=== PATIENT | male | born 1930 | race Caucasian/White ===

== ENCOUNTER 2020-11-14 12:43 | Inpatient (IN) | payer MEDICARE, BC ==
[~2020-11-14] VITALS: Ht 177.8 cm; Wt 81.5 kg
[2020-11-14] VITALS (10 sets, daily range): BP systolic 114–132; BP diastolic 57–67
[~2020-11-14 12:43] MED LIST: FURO1TAB33 PO; LOVA40TA72 PO; POT20T PO; WARF10TA PO; WARF1TAB PO
[2020-11-14] MEDS ORDERED: PANTOPRAZOLE 40 MG/10 ML VIAL INJ IV ONE (13:30)
[2020-11-14 14:26] LABS: Basophils # (auto) 0 10 ^3/uL (0-0.2); Basophils % (auto) 0.2 % (0.0-2.0); Eosinophils # (auto) 0.1 10 ^3/uL (0-0.8); Eosinophils % (auto) 1.1 % (0.0-7.0); Hematocrit 39.1 % (41.0-53.0); Lymphocytes # (auto) 0.4 10 ^3/uL (0.4-5.4); Lymphocytes % (auto) 3.1 % (10.0-50.0); Mean Corpuscular Hgb Conc. 33.3 g/dL (32.0-36.0); Mean Corpuscular Volume 86.9 fL (80.0-100.0); Monocytes # (auto) 0.6 10 ^3/uL (0-1.3); Monocytes % (auto) 4.5 % (0.0-12.0); Neutrophils # (auto) 11.8 10 ^3/uL (1.6-8.6); Neutrophils % (auto) 91.1 % (37.0-80.0); Red Cell Distribution Width 17.4 % (11.8-14.3); White Blood Cell 12.9 10^3/uL (4.4-10.8)
[2020-11-14 14:38] LABS: INR 3.02 (0.9-1.15)
[2020-11-14 14:44] LABS: Albumin 3.2 g/dL (3.4-5.0); Anion Gap 7 (5-15); Blood Urea Nitrogen 23 mg/dL (7-18); Carbon Dioxide 25 mmol/L (21-32); Chloride 106 mmol/L (98-107); Glucose 93 mg/dL (74-106); Potassium 3.6 mmol/L (3.5-5.1); Sodium 138 mmol/L (136-145)
[2020-11-14 14:50] LABS: Alanine Aminotransferase 26 U/L (16-61); Alkaline Phosphatase 64 U/L (45-117); Aspartate Aminotransferase 22 U/L (15-37); BUN/Creatinine Ratio 15.2; Bilirubin, Total 2.1 mg/dL (0.2-1.0); GFR African American 56 mL/min; GFR Non-African American 47 mL/min; Total Protein 7.6 g/dL (6.4-8.2)
[2020-11-14] MEDS ORDERED: IOHEXOL 300 MG/ML 100ML BOTTLE IJ ONE (15:59)
[2020-11-14] MEDS ORDERED: metroNIDAZOLE 500MG/100ML 100 ML IV ONE (17:15)
[2020-11-14] MEDS ORDERED: MORPHINE SULFATE 10 MG/ML INJ 1ML SDV IV ONE (17:15)
[2020-11-14] MEDS ORDERED: CIPROFLOXACIN 400MG/200ML 200 ML IV ONE (17:15)
[2020-11-14] MEDS ORDERED: SODIUM CHLORIDE 0.9% 1,000 ML IV ONE ×2 (17:15→17:45)
[2020-11-14] MEDS ORDERED: MORPHINE SULFATE INJECTION 2 MG/ML SYRG IV ONE (17:30)
[2020-11-14] MEDS ORDERED: PHYTONADIONE (VIT K)10 MG/ML 1ML VIAL SUBCUT ONE (17:45)
[2020-11-14] MEDS ORDERED: NITROGLYCERIN 0.4 MG SL TAB SL PRN (17:45)
[2020-11-14] MEDS ORDERED: ONDANSETRON HCL 4 MG/2 ML VIAL IV PRN (17:45)
[2020-11-14] MEDS ORDERED: MORPHINE SULFATE INJECTION 2 MG/ML SYRG IV PRN ×2 (17:45)
[2020-11-14] MEDS ORDERED: SODIUM CHLORIDE 0.9% 1,000 ML IV SCH (17:45)
[2020-11-14] MEDS ORDERED: SOD CHL 0.45% WITH 20MEQ KCL 1,000 ML IV ONE (20:15)
[2020-11-15] VITALS: BP 120/68
[2020-11-15 00:15] VITALS: BP 127/60
[2020-11-15 00:28] VITALS: BP 137/68
[2020-11-15] MEDS: metroNIDAZOLE 500MG/100ML 100 ML IV SCH ×4 (00:40→22:18)
[2020-11-15] MEDS: PANTOPRAZOLE 40 MG/10 ML VIAL INJ IV SCH ×2 (00:41→10:29)
[2020-11-15 02:11] LABS: Urine Bacteria FEW /hpf (None Seen); Urine Blood 1+ /uL (Negative); Urine Mucus FEW (None Seen); Urine WBC 1 /hpf (0 - 3)
[2020-11-15 07:30] LABS: Basophils # (auto) 0 10 ^3/uL (0-0.2); Basophils % (auto) 0.2 % (0.0-2.0); Eosinophils # (auto) 0.1 10 ^3/uL (0-0.8); Eosinophils % (auto) 1.7 % (0.0-7.0); Hematocrit 33.5 % (41.0-53.0); Hemoglobin 11.4 g/dL (13.5-17.5); Lymphocytes # (auto) 0.3 10 ^3/uL (0.4-5.4); Lymphocytes % (auto) 3.1 % (10.0-50.0); Mean Corpuscular Hemoglobin 29.4 pg (28.0-32.0); Mean Corpuscular Hgb Conc. 33.9 g/dL (32.0-36.0); Mean Corpuscular Volume 86.6 fL (80.0-100.0); Monocytes # (auto) 0.6 10 ^3/uL (0-1.3); Monocytes % (auto) 7.1 % (0.0-12.0); Neutrophils # (auto) 7.4 10 ^3/uL (1.6-8.6); Neutrophils % (auto) 87.9 % (37.0-80.0); Nucleated Red Blood Cells % 0.1 %; Red Blood Cells 3.87 10^6/uL (4.5-5.90); Red Cell Distribution Width 17.1 % (11.8-14.3); White Blood Cell 8.4 10^3/uL (4.4-10.8)
[2020-11-15 07:41] LABS: INR 1.22 (0.9-1.15); Partial Thromboplastin Time 34.1 sec (23.6-33.0)
[2020-11-15] MEDS ORDERED: levoFLOXacin 500MG 100 ML IV SCH (10:00)
[2020-11-15] MEDS ORDERED: MIDAZOLAM HCL 2MG/2ML 2ml VIAL (1mg/ml) ONE (11:02)
[2020-11-15] MEDS ORDERED: HYDROmorphone HCL 2 MG/ML VL ONE (11:02)
[2020-11-15] MEDS ORDERED: fentaNYL CITRATE 100 MCG/2 ML VL ONE ×2 (11:02→12:01)
[2020-11-15] MEDS ORDERED: SUCCINYLCHOLINE CHLORIDE 20 MG/ML 10ML VIAL IV ONE (11:06)
[2020-11-15] MEDS ORDERED: LIDOCAINE 2% (LOCAL ANESTH.) PF 5ml SDV ONE (11:35)
[2020-11-15] MEDS ORDERED: PROPOFOL 10 MG/ML 20 ML IV ONE (11:35)
[2020-11-15] MEDS ORDERED: ONDANSETRON HCL 4 MG/2 ML VIAL ONE (11:35)
[2020-11-15] MEDS ORDERED: ROCURONIUM 10MG/ML 10ML VIAL IV ONE (11:36)
[2020-11-15] MEDS ORDERED: POVIDONE IODINE 10 % TOPICAL OINT 30GM TOP ONE (12:52)
[2020-11-15] MEDS ORDERED: BUPIVACAINE 0.25% INJ 50ML VIAL ONE (13:59)
[2020-11-15] MEDS ORDERED: ONDANSETRON HCL 4 MG/2 ML VIAL IV PRN ×2 (14:15→14:45)
[2020-11-15] MEDS: D5W/SOD CHL 0.45%/KCL 40MEQ 1,000 ML IV SCH ×2 (14:15→19:47)
[2020-11-15] MEDS ORDERED: NALOXONE HCL 0.4 MG/ML VIAL ONE (14:18)
[2020-11-15] MEDS ORDERED: PHENYLEPHRINE HCL 10 MG/ML VL ONE (14:33)
[2020-11-15] MEDS ORDERED: HYDROmorphone HCL 2 MG/ML VL IV PRN ×2 (14:45)
[2020-11-15 18:42] VITALS: BP 137/67
[2020-11-15 19:00] VITALS: BP 137/67
[2020-11-15] MEDS ORDERED: WARF1TAB36 PO (20:22)
[2020-11-15 22:00] VITALS: BP 124/59
[2020-11-15] MEDS ORDERED: metroNIDAZOLE 500MG/100ML 100 ML IV SCH (22:00)
[2020-11-15] MEDS: MORPHINE SULFATE INJECTION 2 MG/ML SYRG IV PRN (22:19)
[2020-11-16] MEDS: MORPHINE SULFATE INJECTION 2 MG/ML SYRG IV PRN (02:22)
[2020-11-16] MEDS ORDERED: FERR-20 PO (02:57)
[2020-11-16] MEDS ORDERED: WARF3TAB22 PO (02:57)
[2020-11-16] MEDS ORDERED: METO25TA5 PO (02:57)
[2020-11-16 04:00] VITALS: BP 139/66
[2020-11-16] MEDS: metroNIDAZOLE 500MG/100ML 100 ML IV SCH ×3 (05:13→21:39)
[2020-11-16 05:58] LABS: Basophils # (auto) 0 10 ^3/uL (0-0.2); Basophils % (auto) 0.3 % (0.0-2.0); Eosinophils # (auto) 0 10 ^3/uL (0-0.8); Eosinophils % (auto) 0.2 % (0.0-7.0); Hematocrit 35.4 % (41.0-53.0); Hemoglobin 11.9 g/dL (13.5-17.5); Lymphocytes # (auto) 0.3 10 ^3/uL (0.4-5.4); Lymphocytes % (auto) 2.8 % (10.0-50.0); Mean Corpuscular Hemoglobin 29.3 pg (28.0-32.0); Mean Corpuscular Hgb Conc. 33.6 g/dL (32.0-36.0); Mean Corpuscular Volume 87.1 fL (80.0-100.0); Monocytes # (auto) 0.9 10 ^3/uL (0-1.3); Monocytes % (auto) 9.2 % (0.0-12.0); Neutrophils # (auto) 8.4 10 ^3/uL (1.6-8.6); Neutrophils % (auto) 87.5 % (37.0-80.0); Red Blood Cells 4.06 10^6/uL (4.5-5.90); Red Cell Distribution Width 17.1 % (11.8-14.3); White Blood Cell 9.6 10^3/uL (4.4-10.8)
[2020-11-16 06:17] LABS: INR 1.23 (0.9-1.15); Partial Thromboplastin Time 30.4 sec (23.6-33.0)
[2020-11-16 06:26] LABS: Albumin 2.2 g/dL (3.4-5.0); BUN/Creatinine Ratio 13.9; Bilirubin, Total 1.8 mg/dL (0.2-1.0); Calcium 7.6 mg/dL (8.5-10.1)
[2020-11-16] MEDS: PANTOPRAZOLE 40 MG/10 ML VIAL INJ IV SCH (09:51)
[2020-11-16] MEDS: D5W/SOD CHL 0.45%/KCL 40MEQ 1,000 ML IV SCH ×2 (09:52→20:58)
[2020-11-16] MEDS ORDERED: ENOXAPARIN SOD 40 MG/0.4 ML SYRINGE SC SCH (10:00)
[2020-11-16] MEDS: KETOROLAC TROMETH 30 MG/ML 1ML VIAL IV PRN (15:51)
[2020-11-16 17:00] VITALS: BP 118/63
[2020-11-16 22:00] VITALS: BP 122/64
[2020-11-17 04:00] VITALS: BP 128/69
[2020-11-17] MEDS: metroNIDAZOLE 500MG/100ML 100 ML IV SCH ×3 (05:54→22:44)
[2020-11-17 06:05] LABS: Basophils # (auto) 0 10 ^3/uL (0-0.2); Basophils % (auto) 0.3 % (0.0-2.0); Eosinophils # (auto) 0.3 10 ^3/uL (0-0.8); Eosinophils % (auto) 3.1 % (0.0-7.0); Hematocrit 29.8 % (41.0-53.0); Hemoglobin 10.3 g/dL (13.5-17.5); Lymphocytes # (auto) 0.2 10 ^3/uL (0.4-5.4); Lymphocytes % (auto) 2.5 % (10.0-50.0); Mean Corpuscular Hemoglobin 29.7 pg (28.0-32.0); Mean Corpuscular Hgb Conc. 34.5 g/dL (32.0-36.0); Mean Corpuscular Volume 86.1 fL (80.0-100.0); Monocytes # (auto) 0.8 10 ^3/uL (0-1.3); Monocytes % (auto) 8.7 % (0.0-12.0); Neutrophils # (auto) 8.2 10 ^3/uL (1.6-8.6); Neutrophils % (auto) 85.4 % (37.0-80.0); Red Blood Cells 3.46 10^6/uL (4.5-5.90); Red Cell Distribution Width 17.1 % (11.8-14.3); White Blood Cell 9.6 10^3/uL (4.4-10.8)
[2020-11-17 06:13] LABS: INR 1.27 (0.9-1.15)
[2020-11-17] MEDS: D5W/SOD CHL 0.45%/KCL 40MEQ 1,000 ML IV SCH ×2 (06:15→15:11)
[2020-11-17 06:18] LABS: Potassium 4.2 mmol/L (3.5-5.1)
[2020-11-17 06:40] LABS: Albumin 1.8 g/dL (3.4-5.0); BUN/Creatinine Ratio 13.3; Bilirubin, Total 0.9 mg/dL (0.2-1.0); Calcium 7.8 mg/dL (8.5-10.1); Total Protein 5.5 g/dL (6.4-8.2)
[2020-11-17 09:00] VITALS: BP 146/65
[2020-11-17] MEDS ORDERED: levoFLOXacin 500MG 100 ML IV SCH (09:00)
[2020-11-17] MEDS: PANTOPRAZOLE 40 MG/10 ML VIAL INJ IV SCH (10:05)
[2020-11-17 13:00] VITALS: BP 124/61
[2020-11-17 16:56] VITALS: BP 130/60
[2020-11-17] MEDS ORDERED: WARFARIN SODIUM 5 MG TAB PO ONE (17:00)
[2020-11-17] MEDS: KETOROLAC TROMETH 30 MG/ML 1ML VIAL IV PRN (19:52)
[2020-11-17 23:05] VITALS: BP 124/65
[2020-11-18] MEDS: D5W/SOD CHL 0.45%/KCL 40MEQ 1,000 ML IV SCH ×2 (05:25→09:56)
[2020-11-18] MEDS: metroNIDAZOLE 500MG/100ML 100 ML IV SCH ×3 (05:31→22:51)
[2020-11-18 05:45] VITALS: BP 136/68
[2020-11-18 07:20] LABS: INR 1.25 (0.9-1.15); Partial Thromboplastin Time 31.4 sec (23.6-33.0)
[2020-11-18 07:41] LABS: Potassium 4.1 mmol/L (3.5-5.1)
[2020-11-18 07:46] LABS: Bilirubin, Total 0.9 mg/dL (0.2-1.0)
[2020-11-18 08:08] LABS: Basophils # (auto) 0.1 10 ^3/uL (0-0.2); Basophils % (auto) 0.6 % (0.0-2.0); Eosinophils # (auto) 0.4 10 ^3/uL (0-0.8); Eosinophils % (auto) 4.5 % (0.0-7.0); Hematocrit 29.8 % (41.0-53.0); Hemoglobin 10.2 g/dL (13.5-17.5); Lymphocytes # (auto) 0.3 10 ^3/uL (0.4-5.4); Mean Corpuscular Hemoglobin 29.4 pg (28.0-32.0); Mean Corpuscular Hgb Conc. 34.3 g/dL (32.0-36.0); Mean Corpuscular Volume 85.7 fL (80.0-100.0); Monocytes # (auto) 0.7 10 ^3/uL (0-1.3); Monocytes % (auto) 7.5 % (0.0-12.0); Neutrophils # (auto) 7.3 10 ^3/uL (1.6-8.6); Neutrophils % (auto) 84.4 % (37.0-80.0); Red Blood Cells 3.48 10^6/uL (4.5-5.90); Red Cell Distribution Width 17.4 % (11.8-14.3); White Blood Cell 8.6 10^3/uL (4.4-10.8)
[2020-11-18 08:30] VITALS: BP 140/63
[2020-11-18] MEDS: PANTOPRAZOLE 40 MG/10 ML VIAL INJ IV SCH (09:56)
[2020-11-18 12:30] VITALS: BP 152/77
[2020-11-18 13:05] VITALS: BP 145/68
[2020-11-18 16:46] VITALS: BP 132/69
[2020-11-18] MEDS ORDERED: WARFARIN SODIUM 2.5 MG TAB PO ONE (17:00)
[2020-11-18 22:00] VITALS: BP 150/82
[2020-11-19] MEDS: D5W/SOD CHL 0.45%/KCL 40MEQ 1,000 ML IV SCH ×3 (00:36→17:08)
[2020-11-19 05:00] VITALS: BP 138/72
[2020-11-19] MEDS: metroNIDAZOLE 500MG/100ML 100 ML IV SCH ×3 (06:08→21:37)
[2020-11-19 06:27] LABS: INR 1.37 (0.9-1.15)
[2020-11-19 06:29] LABS: Hematocrit 29.6 % (41.0-53.0); Hemoglobin 10.3 g/dL (13.5-17.5); Mean Corpuscular Hemoglobin 29.8 pg (28.0-32.0); Mean Corpuscular Hgb Conc. 34.8 g/dL (32.0-36.0); Mean Corpuscular Volume 85.7 fL (80.0-100.0); Red Blood Cells 3.46 10^6/uL (4.5-5.90); Red Cell Distribution Width 17.3 % (11.8-14.3); White Blood Cell 7.8 10^3/uL (4.4-10.8)
[2020-11-19 06:32] LABS: Albumin 1.9 g/dL (3.4-5.0)
[2020-11-19 07:01] LABS: Basophils % (manual) 0 (0.0-2.0); Blast Cells 0; Promyelocytes % 0; Reactive Lymphocytes 0
[2020-11-19 08:57] LABS: Band Neutrophils % (manual) 4; Eosinophils % (manual) 1 (0-7); Lymphocytes % (manual) 3 (10.0-50.0); Metamyelocytes % 4; Monocytes % (manual) 8 (0-12); Myelocytes % 1
[2020-11-19] MEDS: PANTOPRAZOLE 40 MG/10 ML VIAL INJ IV SCH (08:58)
[2020-11-19] MEDS: levoFLOXacin 500MG 100 ML IV SCH (08:58)
[2020-11-19 09:00] VITALS: BP 138/78
[2020-11-19 13:00] VITALS: BP 140/75
[2020-11-19 17:00] VITALS: BP 131/70
[2020-11-19] MEDS ORDERED: WARFARIN SODIUM 5 MG TAB PO ONE (17:00)
[2020-11-19 22:00] VITALS: BP 134/70
[2020-11-20] MEDS: D5W/SOD CHL 0.45%/KCL 40MEQ 1,000 ML IV SCH ×3 (04:17→21:58)
[2020-11-20 05:00] VITALS: BP 136/69
[2020-11-20] MEDS: metroNIDAZOLE 500MG/100ML 100 ML IV SCH ×3 (06:26→21:58)
[2020-11-20 06:40] LABS: Hematocrit 32.5 % (41.0-53.0); Mean Corpuscular Hemoglobin 28.8 pg (28.0-32.0); Mean Corpuscular Hgb Conc. 33.8 g/dL (32.0-36.0); Mean Corpuscular Volume 85.3 fL (80.0-100.0); Red Blood Cells 3.82 10^6/uL (4.5-5.90); Red Cell Distribution Width 17.8 % (11.8-14.3); White Blood Cell 9.4 10^3/uL (4.4-10.8)
[2020-11-20 06:45] LABS: INR 1.78 (0.9-1.15)
[2020-11-20 06:56] LABS: Blast Cells 0; Myelocytes % 0; Reactive Lymphocytes 0
[2020-11-20 07:01] LABS: BUN/Creatinine Ratio 12.9; Calcium 7.8 mg/dL (8.5-10.1)
[2020-11-20 07:04] LABS: Bilirubin, Total 0.8 mg/dL (0.2-1.0)
[2020-11-20 07:28] LABS: Band Neutrophils % (manual) 1; Basophils % (manual) 1 (0.0-2.0); Eosinophils % (manual) 3 (0-7); Lymphocytes % (manual) 5 (10.0-50.0); Metamyelocytes % 3; Monocytes % (manual) 13 (0-12); Promyelocytes % 1
[2020-11-20 08:00] VITALS: BP 150/72
[2020-11-20] MEDS: PANTOPRAZOLE 40 MG/10 ML VIAL INJ IV SCH (11:08)
[2020-11-20] MEDS: levoFLOXacin 500MG 100 ML IV SCH (11:08)
[2020-11-20 12:00] VITALS: BP 134/68
[2020-11-20] MEDS ORDERED: GASTROGRAFIN 120 ML SOL ONE (14:38)
[2020-11-20 17:00] VITALS: BP 103/67
[2020-11-20] MEDS ORDERED: WARFARIN SODIUM 5 MG TAB PO ONE (17:00)
[2020-11-20 22:21] VITALS: BP 137/71
[2020-11-21 05:30] VITALS: BP 119/84
[2020-11-21] MEDS: metroNIDAZOLE 500MG/100ML 100 ML IV SCH ×3 (06:04→22:21)
[2020-11-21 07:15] LABS: INR 2.26 (0.9-1.15)
[2020-11-21 07:25] LABS: Albumin 2.2 g/dL (3.4-5.0); Potassium 4.2 mmol/L (3.5-5.1)
[2020-11-21 07:28] LABS: BUN/Creatinine Ratio 10.6; Bilirubin, Total 0.6 mg/dL (0.2-1.0); Total Protein 6.1 g/dL (6.4-8.2)
[2020-11-21 08:19] LABS: Hemoglobin 11.9 g/dL (13.5-17.5); Mean Corpuscular Volume 85.4 fL (80.0-100.0); Red Cell Distribution Width 18.4 % (11.8-14.3); White Blood Cell 8.7 10^3/uL (4.4-10.8)
[2020-11-21 08:24] LABS: Basophils % (manual) 0 (0.0-2.0); Blast Cells 0; Promyelocytes % 0; Reactive Lymphocytes 0
[2020-11-21 09:00] VITALS: BP 149/65
[2020-11-21] MEDS: levoFLOXacin 500MG 100 ML IV SCH (09:48)
[2020-11-21] MEDS: PANTOPRAZOLE 40 MG/10 ML VIAL INJ IV SCH (09:48)
[2020-11-21] MEDS: D5W/SOD CHL 0.45%/KCL 40MEQ 1,000 ML IV SCH ×2 (10:00→22:21)
[2020-11-21 11:29] LABS: Band Neutrophils % (manual) 6; Eosinophils % (manual) 4 (0-7); Lymphocytes % (manual) 9 (10.0-50.0); Metamyelocytes % 1; Monocytes % (manual) 3 (0-12); Myelocytes % 2
[2020-11-21 13:00] VITALS: BP 133/69
[2020-11-21 17:00] VITALS: BP 133/68
[2020-11-21] MEDS ORDERED: WARFARIN SODIUM 2 MG TAB PO ONE (17:00)
[2020-11-21 22:00] VITALS: BP 133/64
[2020-11-22 05:00] VITALS: BP 134/71
[2020-11-22] MEDS: D5W/SOD CHL 0.45%/KCL 40MEQ 1,000 ML IV SCH (06:15)
[2020-11-22] MEDS: metroNIDAZOLE 500MG/100ML 100 ML IV SCH ×3 (06:19→21:26)
[2020-11-22 09:00] VITALS: BP 133/63
[2020-11-22 09:39] LABS: Basophils # (auto) 0.1 10 ^3/uL (0-0.2); Basophils % (auto) 1.1 % (0.0-2.0); Eosinophils # (auto) 0.3 10 ^3/uL (0-0.8); Eosinophils % (auto) 3.2 % (0.0-7.0); Hematocrit 34.1 % (41.0-53.0); Hemoglobin 11.3 g/dL (13.5-17.5); Lymphocytes # (auto) 0.4 10 ^3/uL (0.4-5.4); Lymphocytes % (auto) 4.6 % (10.0-50.0); Mean Corpuscular Hemoglobin 28.7 pg (28.0-32.0); Mean Corpuscular Hgb Conc. 33.2 g/dL (32.0-36.0); Mean Corpuscular Volume 86.5 fL (80.0-100.0); Monocytes # (auto) 0.7 10 ^3/uL (0-1.3); Monocytes % (auto) 7.8 % (0.0-12.0); Neutrophils # (auto) 7.7 10 ^3/uL (1.6-8.6); Neutrophils % (auto) 83.3 % (37.0-80.0); Nucleated Red Blood Cells % 0.2 %; Red Blood Cells 3.94 10^6/uL (4.5-5.90); Red Cell Distribution Width 18.4 % (11.8-14.3); White Blood Cell 9.2 10^3/uL (4.4-10.8)
[2020-11-22] MEDS: PANTOPRAZOLE 40 MG/10 ML VIAL INJ IV SCH (09:57)
[2020-11-22] MEDS: levoFLOXacin 500MG 100 ML IV SCH (09:57)
[2020-11-22 09:58] LABS: Albumin 2.3 g/dL (3.4-5.0); Potassium 4.1 mmol/L (3.5-5.1)
[2020-11-22 10:01] LABS: Bilirubin, Total 0.5 mg/dL (0.2-1.0); Total Protein 6.2 g/dL (6.4-8.2)
[2020-11-22 11:47] LABS: INR 2.68 (0.9-1.15)
[2020-11-22 13:00] VITALS: BP 130/58
[2020-11-22 17:00] VITALS: BP 131/60
[2020-11-22] MEDS ORDERED: WARFARIN SODIUM 1 MG TAB PO ONE (17:00)
[2020-11-22 22:00] VITALS: BP 126/60
[2020-11-23 05:00] VITALS: BP 130/60
[2020-11-23] MEDS: metroNIDAZOLE 500MG/100ML 100 ML IV SCH ×3 (06:05→22:27)
[2020-11-23 06:51] LABS: INR 2.28 (0.9-1.15)
[2020-11-23 08:01] LABS: Hematocrit 32.5 % (41.0-53.0); Hemoglobin 10.7 g/dL (13.5-17.5); Mean Corpuscular Hemoglobin 28.6 pg (28.0-32.0); Mean Corpuscular Volume 86.7 fL (80.0-100.0); Red Blood Cells 3.75 10^6/uL (4.5-5.90); Red Cell Distribution Width 18.7 % (11.8-14.3); White Blood Cell 9.3 10^3/uL (4.4-10.8)
[2020-11-23 08:07] LABS: Basophils % (manual) 0 (0.0-2.0); Blast Cells 0; Promyelocytes % 0; Reactive Lymphocytes 0
[2020-11-23 09:00] VITALS: BP 123/62
[2020-11-23] MEDS: PANTOPRAZOLE 40 MG/10 ML VIAL INJ IV SCH (09:37)
[2020-11-23] MEDS: levoFLOXacin 500MG 100 ML IV SCH (09:37)
[2020-11-23 09:41] LABS: Band Neutrophils % (manual) 4; Eosinophils % (manual) 2 (0-7); Lymphocytes % (manual) 5 (10.0-50.0); Metamyelocytes % 3; Monocytes % (manual) 9 (0-12); Myelocytes % 2
[2020-11-23 13:00] VITALS: BP 131/69
[2020-11-23] MEDS ORDERED: WARFARIN SODIUM 2 MG TAB PO ONE (17:00)
[2020-11-23 22:00] VITALS: BP 121/64
[2020-11-24 05:00] VITALS: BP 129/64
[2020-11-24] MEDS: metroNIDAZOLE 500MG/100ML 100 ML IV SCH ×2 (05:43→13:21)
[2020-11-24 06:01] LABS: Hematocrit 32.9 % (41.0-53.0); Hemoglobin 11.1 g/dL (13.5-17.5); Mean Corpuscular Hemoglobin 28.9 pg (28.0-32.0); Mean Corpuscular Hgb Conc. 33.8 g/dL (32.0-36.0); Mean Corpuscular Volume 85.5 fL (80.0-100.0); Red Blood Cells 3.85 10^6/uL (4.5-5.90); Red Cell Distribution Width 17.9 % (11.8-14.3); White Blood Cell 11.2 10^3/uL (4.4-10.8)
[2020-11-24 06:25] LABS: INR 2.06 (0.9-1.15)
[2020-11-24 06:31] LABS: Basophils % (manual) 0 (0.0-2.0); Blast Cells 0; Metamyelocytes % 0; Promyelocytes % 0; Reactive Lymphocytes 0
[2020-11-24 06:36] LABS: Albumin 2.4 g/dL (3.4-5.0)
[2020-11-24 08:33] LABS: Band Neutrophils % (manual) 1; Eosinophils % (manual) 1 (0-7); Lymphocytes % (manual) 20 (10.0-50.0); Monocytes % (manual) 4 (0-12); Myelocytes % 2
[2020-11-24 09:00] VITALS: BP 137/69
[2020-11-24] MEDS: levoFLOXacin 500MG 100 ML IV SCH ×2 (10:27→10:51)
[2020-11-24] MEDS: PANTOPRAZOLE 40 MG/10 ML VIAL INJ IV SCH ×2 (10:27→10:51)
[2020-11-24 13:00] VITALS: BP 130/68
== END 2020-11-24 15:05 | disposition home or self-care (01) | DRG 853 ==
LOC: EDBD 12:43 → ER 12:43 → TELE 17:47 → TELE-WESTW 11-15 18:37
PROVIDERS: ADMIT Nurse Practitioner Acute Care; ATTEND Family Medicine
PROC: 30233K1 Transfusion of Nonautologous Frozen Plasma into Peripheral Vein, Percutaneous Approach (ICD-10-PCS; 2020-11-14)
PROC: 0DN80ZZ Release Small Intestine, Open Approach (ICD-10-PCS; 2020-11-15)
PROC: 0DB80ZZ Excision of Small Intestine, Open Approach (ICD-10-PCS; principal; 2020-11-15 11:37)
DX: A41.9 Sepsis, unspecified organism (principal); K63.1 Perforation of intestine (nontraumatic); N17.0 Acute kidney failure with tubular necrosis; K65.9 Peritonitis, unspecified; K57.31 Diverticulosis of large intestine without perforation or abscess with bleeding; K55.9 Vascular disorder of intestine, unspecified; K52.9 Noninfective gastroenteritis and colitis, unspecified; T45.515A Adverse effect of anticoagulants, initial encounter; N18.31 Chronic kidney disease, stage 3a; K66.0 Peritoneal adhesions (postprocedural) (postinfection); D64.9 Anemia, unspecified; J44.9 Chronic obstructive pulmonary disease, unspecified; E78.5 Hyperlipidemia, unspecified; Z20.822 Contact with and (suspected) exposure to COVID-19; E78.00 Pure hypercholesterolemia, unspecified; K40.90 Unilateral inguinal hernia, without obstruction or gangrene, not specified as recurrent; F17.290 Nicotine dependence, other tobacco product, uncomplicated; Z88.0 Allergy status to penicillin; Z79.899 Other long term (current) drug therapy; Z82.49 Family history of ischemic heart disease and other diseases of the circulatory system; Z79.01 Long term (current) use of anticoagulants; Z85.038 Personal history of other malignant neoplasm of large intestine; Z90.49 Acquired absence of other specified parts of digestive tract; Z95.2 Presence of prosthetic heart valve; I12.9 Hypertensive chronic kidney disease with stage 1 through stage 4 chronic kidney disease, or unspecified chronic kidney disease
CPT/HCPCS: 36415; 71045; 74177; 74250; 80053; 81001; 82040; 82565; 83605; 83690; 84484; 85007; 85025; 85027; 85610; 85730; 86850; 86900; 86901; 87040; 87426; 93005; 93306; 96361; 96365; 96367; 96372; 96375; 97110; 97116; 97530; 99291; C9113; G0378; J0330; J1885; J1956; J2001; J2250; J2405; J2704; J3430; J3490